=== PATIENT | male | born 1975 | race African-American/Black ===

== ENCOUNTER 2022-01-29 08:54 | Emergency (ER) | payer OTHER ==
[2022-01-29 09:04] VITALS: BP 136/91; PULSE 88; TEMP 99; BMI 29.9
[2022-01-29 11:34] LABS: EPITHELIAL CELLS MODERATE /hpf
== END 2022-01-29 11:15 | disposition home or self-care (01) ==
LOC: FER 08:54
DX: N45.3 Epididymo-orchitis (principal)
CPT/HCPCS: 76870-TC; 81003; 81015; 87086; 99284-25